=== PATIENT | male | born 1950 | race Caucasian/White ===

== ENCOUNTER 2017-12-22 18:08 | Inpatient (IN) | payer MEDICARE, OTHER ==
--- NOTE | 2017-12-22 18:31 | ED ---
General Adult HPI - General Chief complaint: Recheck/Abnormal Lab/Rx Stated complaint: sepsis Time Seen by Provider: 12/22/17 18:10 Source: patient, EMS, RN notes reviewed, old records reviewed Mode of arrival: EMS Limitations: no limitations - History of Present Illness Initial comments: This is a 67-year-old male the ER for evaluation. Patient presented to transfer patient for colitis, nausea vomiting diarrhea weakness and inability to tolerate oral intake. Patient denies any recent travel history, patient is accepted in transfer from outpatient hospital with elevated lactic acid. Patient himself isn't a STEMI feels mildly improved with still still does feel dizzy and weak - Related Data Home Medications Medication Instructions Recorded Confirmed Aspirin 325 mg PO DAILY 04/22/14 12/22/17 Cilostazol [Pletal] 100 mg PO BID 04/22/14 12/22/17 Metoprolol Tartrate [Lopressor] 100 mg PO BID 04/22/14 12/22/17 rOPINIRole HCL [Requip] 0.25 mg PO TID 04/22/14 12/22/17 traZODone HCL [Desyrel] 200 mg PO HS 04/22/14 12/22/17 ALPRAZolam [Xanax] 1 mg PO BID PRN 05/16/14 12/22/17 Albuterol Nebulized [Ventolin 2.5 mg INHALATION RT-QID PRN 05/16/14 12/22/17 Nebulized] Gabapentin 800 mg PO QID 12/22/17 12/22/17 HYDROcodone/APAP 10-325MG [[place] 1 tab PO Q6HR PRN 12/22/17 12/22/17 10-325] Lisinopril [Zestril] 10 mg PO DAILY 12/22/17 12/22/17 Allergies Allergy/AdvReac Type Severity Reaction Status Date / Time clopidogrel [From Plavix] Allergy Itching Verified 12/22/17 18:26 morphine Allergy Rash/Hives Verified 05/16/14 03:54 fentanyl AdvReac Hallucinati Verified 12/22/17 18:26 ons Review of Systems ROS Statement: Those systems with pertinent positive or pertinent negative responses have been documented in the HPI. ROS Other: All systems not noted in ROS Statement are negative. Past Medical History Past Medical History: Eye Disorder, Hyperlipidemia, Hypertension, Liver Disease , Osteoarthritis (OA) Additional Past Medical History / Comment(s): POOR CIRCULATION IN LEGS" HEPATITIS C , BLIND RIGHT EYE (pt states he has about 25% vision) History of Any Multi-Drug Resistant Organisms: None Reported Past Surgical History: Tonsillectomy Additional Past Surgical History / Comment(s): PTBA X6 WITH STENT IN LEG, RAKA 2008 Past Anesthesia/Blood Transfusion Reactions: No Reported Reaction Past Psychological History: Anxiety Smoking Status: Current every day smoker Past Alcohol Use History: None Reported Past Drug Use History: Marijuana - Past Family History Father Family Medical History: Cancer General Exam Limitations: no limitations General appearance: alert, in no apparent distress Head exam: Present: atraumatic, normocephalic, normal inspection Eye exam: Present: normal appearance, PERRL, EOMI. Absent: scleral icterus, conjunctival injection, periorbital swelling ENT exam: Present: normal exam, mucous membranes moist Neck exam: Present: normal inspection. Absent: tenderness, meningismus, lymphadenopathy Respiratory exam: Present: normal lung sounds bilaterally. Absent: respiratory distress, wheezes, rales, rhonchi, stridor Cardiovascular Exam: Present: regular rate, normal rhythm, normal heart sounds. Absent: systolic murmur, diastolic murmur, rubs, gallop, clicks GI/Abdominal exam: Present: soft, normal bowel sounds. Absent: distended, tenderness, guarding, rebound, rigid Extremities exam: Present: normal inspection, full ROM, normal capillary refill. Absent: tenderness, pedal edema, joint swelling, calf tenderness Back exam: Present: normal inspection Neurological exam: Present: alert, oriented X3, CN II-XII intact Psychiatric exam: Present: normal affect, normal mood Skin exam: Present: warm, dry, intact, normal color. Absent: rash Course Vital Signs 12/22/17 18:14 Temperature 96.9 F L Pulse Rate 85 Respiratory 18 Rate Blood Pressure 108/67 O2 Sat by Pulse 100 Oximetry - Reevaluation(s) Reevaluation #1: 12/22/17 19:09 Transferring paperwork is reviewed Medical Decision Making - Medical Decision Making 67 male the ER for nausea vomiting diarrhea colitis on CT with lactic acidosis and dehydration. We'll admit for IV rehydration and supportive antibiotics Disposition Clinical Impression: Colitis, Dizziness, Nausea & vomiting, Abdominal pain Disposition: ADMITTED IP TO THIS HOSP Condition: Good Is patient prescribed a controlled substance at d/c from ED?: No Referrals: Phani Rosenthal MD [Primary Care Provider] - 1-2 days
[2017-12-22] MEDS ORDERED: SODIUM CHLORIDE 0.9% 1,000 ML IV ONE (19:07)
[2017-12-22] MEDS ORDERED: ONDANSETRON 4 MG/2 ML VIAL IVP PRN (19:07)
[2017-12-22] MEDS ORDERED: AMPICILLIN-SULBACTAM 3 GM in SODIUM CHLORIDE 0.9% 100 ML IVPB STA (19:07)
[2017-12-22] MEDS: ALPRAZolam 0.25 MG TAB PO PRN (21:34)
[2017-12-22] MEDS: HYDROcodone/APAP 10-325MG 1 EACH TAB PO PRN (21:34)
[2017-12-22] MEDS: METOPROLOL TARTRATE 50 MG TAB PO SCH (22:09)
[2017-12-22] MEDS: traZODone HCL 100 MG TAB PO SCH (22:09)
[2017-12-22] MEDS: GABAPENTIN 400 MG CAP PO SCH (22:09)
[2017-12-22] MEDS ORDERED: TEMAZEPAM 15 MG CAP PO PRN (22:16)
[2017-12-22] MEDS ORDERED: ACETAMINOPHEN TAB 500 MG TAB PO PRN (22:16)
[2017-12-22] MEDS ORDERED: ALBUTEROL NEBULIZED 2.5 MG/3 ML INHALATION PRN (22:19)
--- NOTE | 2017-12-22 22:47 | HP ---
HISTORY AND PHYSICAL DATE OF SERVICE: 12/22/2017. CHIEF COMPLAINT: Abdominal pain, GI bleed, nausea. HISTORY OF PRESENT ILLNESS: This 67-year-old gentleman with a past medical history of multiple medical problems including DVT, history hypertension, hyperlipidemia, history of liver disease, history of EtOH, history hepatitis C, history of DJD, history of constipation, history of PTCA, history of bilateral above-knee amputation, being followed by Dr. Rosenthal in the outpatient setting, presented to [facility] with multiple complaints including abdominal pain, nausea, vomiting, some diarrhea, and diminished p.o. intake. Patient also had bloody stools also. A CT scan of the abdomen and pelvis showed L2 chronic compression fracture as well as wall thickening in the colon from the distal transverse, down to and including the rectum, compatible with colitis and proctitis. The patient was subsequently transferred to [facility] Emergency Room and was admitted for further evaluation and treatment. There is no history of fevers, rigors, headaches, loss of consciousness, or seizures. PAST MEDICAL HISTORY: History of DVT, hypertension, history of DJD, history of liver disease. MEDICATIONS: Prior to admission, home medications are: 1. Desyrel 200 mg at bedtime. 3. Lopressor 100 mg p.o. b.i.d. 4. Zestril 10 mg p.o. daily. 5. [place] 10 mg every 6 hours p.r.n. 6. Gabapentin 800 mg p.o. q.i.d. 7. Pletal 100 mg p.o. b.i.d. 8. Aspirin 325 mg daily. 9. Ventolin 2.5 q.i.d. p.r.n. 10.Xanax 1 mg p.o. b.i.d. p.r.n. ALLERGIES: Plavix, morphine, and fentanyl. FAMILY HISTORY: History of cancer in the family. SOCIAL HISTORY: History of smoking on a continued ongoing basis. No history of alcohol intake. REVIEW OF SYSTEMS: ENT: Diminished hearing and vision. CARDIOVASCULAR: No angina. RESPIRATORY: As mentioned earlier. GI: As mentioned earlier. : As mentioned earlier. NERVOUS SYSTEM: As mentioned earlier. ALLERGIES/IMMUNOLOGY: No asthma or hayfever. MUSCULOSKELETAL: As mentioned earlier. ENDOCRINE: No history of diabetes or hypothyroidism. CONSTITUTIONAL: As mentioned earlier. HEMATOLOGY: No history of anemia. DERMATOLOGY: Negative. PSYCHIATRY: As mentioned earlier. PHYSICAL EXAMINATION: Alert oriented x3. The pulse is 78, blood pressure 107/74, respirations 20, temperature 98 degrees, pulse ox 97% on 4 L. HEENT: Conjunctivae normal. Oral mucosa moist. NECK: No jugular venous distention. No lymph node enlargement. CARDIOVASCULAR: S1 and S2 muffled. RESPIRATORY: Breath sounds diminished in the bases. A few scattered rhonchi. No crackles. ABDOMEN: Soft. Mild diffuse tenderness, especially in the left lower quadrant present. Otherwise, no other mass palpable. Bowel sounds present. EXTREMITIES: Legs no edema. No swelling. Bilateral above-knee amputations. NERVOUS SYSTEM: Higher functions as mentioned. Moves all 4 limbs. No focal motor or sensory deficit. LYMPHATICS: No lymph nodes palpable in the neck, axillae or groin. SKIN: As mentioned earlier. JOINTS: No acute deformities or arthropathy. LABS: At this time current labs are not available, however being reviewed. ASSESSMENT: 1. Left-sided colitis and proctitis, possibly with abdominal pain and lower gastrointestinal bleeding. 2. Nausea and diarrhea. 3. Chronic obstructive pulmonary disease. 4. Degenerative joint disease. 5. Hypertension. 6. Hyperlipidemia. 7. Severe peripheral vascular disease and bilateral above-knee amputations. 8. History of hepatitis C. 9. History EtOH and alcoholic liver disease in the past. 10.History of degenerative joint disease. 11.History of continued ongoing nicotine dependence. 12.Anxiety. 13.History of THC. RECOMMENDATIONS AND DISCUSSION: This 64-year-old gentleman who presented with multiple complex medical issues. We will monitor the patient closely, continue the current management and treatment. Otherwise at this time recommend broad-spectrum IV antibiotics and I would also recommend evaluation by Gastroenterology and Surgery. Otherwise the prognosis is extremely guarded because of multiple complex medical issues. Further recommendations to follow. See orders for further details. Medication reconciliation will be done. MMODL / IJN: [id number] / [facility]ALTH[facility]
[2017-12-22] MEDS ORDERED: LEVOFLOXACIN 500MG-D5W PMX 500 MG in DEXTROSE/WATER 1 100ML.BAG IVPB SCH (23:00)
[2017-12-22] MEDS: SODIUM CHLORIDE 0.9% 1,000 ML IV SCH (23:38)
[2017-12-23] MEDS: metroNIDAZOLE-NS PMX 500 MG in SALINE 1 100ML.BAG IVPB SCH ×3 (00:56→15:52)
[2017-12-23 04:14] LABS: Appearance,Urine Cloudy (Clear); Bilirubin,Urine Negative (Negative); Blood,Urine Moderate (Negative); Color,Urine Yellow; Glucose,Urine (UA) Negative (Negative); Hyaline Casts,Urine 3 /lpf (0-2); Ketones,Urine Negative (Negative); Leukocyte Esterase,Urine Negative (Negative); Mucus,Urine Rare /hpf; Nitrite,Urine Negative (Negative); Protein,Urine 2+ (Negative); RBC,Urine 2 /hpf (0-5); Specific Gravity,Urine 1.013 (1.001-1.035); Urobilinogen,Urine <2.0 mg/dL (<2.0); WBC,Urine 3 /hpf (0-5)
[2017-12-23] MEDS: HYDROcodone/APAP 10-325MG 1 EACH TAB PO PRN ×2 (06:19→13:08)
[2017-12-23 08:53] LABS: HCT 44.8 % (39.0-53.0); HGB 14.1 gm/dL (13.0-17.5); MCH 31.6 pg (25.0-35.0); MCHC 31.4 g/dL (31.0-37.0); MCV 100.7 fL (80.0-100.0); Mean Platelet Volume 7.9; Platelet Count 234 k/uL (150-450); RBC 4.45 m/uL (4.30-5.90); RDW 13.3 % (11.5-15.5); WBC 19.1 k/uL (3.8-10.6)
[2017-12-23 08:54] LABS: Calcium 7.6 mg/dL (8.4-10.2); Potassium 4.2 mmol/L (3.5-5.1)
[2017-12-23] MEDS ORDERED: LISINOPRIL 10 MG TAB PO SCH (09:00)
[2017-12-23] MEDS ORDERED: ENOXAPARIN 40 MG/0.4 ML SYRINGE SQ SCH (09:00)
[2017-12-23] MEDS: NICOTINE 14MG/24HR PATCH TRANSDERM SCH (09:14)
[2017-12-23] MEDS: PANTOPRAZOLE 40 MG/10 ML VIAL IVP SCH (09:15)
[2017-12-23] MEDS: GABAPENTIN 400 MG CAP PO SCH (09:15)
[2017-12-23] MEDS: HEPARIN SODIUM,PORCINE 5,000 UNIT/ML 1 ML VIAL SQ SCH ×2 (09:15→22:00)
[2017-12-23] MEDS: SODIUM CHLORIDE 0.9% 1,000 ML IV SCH (09:16)
[2017-12-23 09:57] VITALS: BMI 16.1
--- NOTE | 2017-12-23 09:59 | P.NPCON ---
History of Present Illness - Reason for Consult acute renal failure - History of Present Illness Reason for consultation: Acute kidney injury History of present illness: Patient is a 67-year-old male seen in renal consultation for acute kidney injury. Creatinine in 2015 was 0.74. It is elevated at 6.75 today. Patient presented to [facility] with generalized weakness along with abdominal discomfort. Patient denies any nausea vomiting but states his oral intake has been quite poor the last few days. Patient also admits to taking 2 Aleve on a daily basis for general pain. Additionally he was also on lisinopril. He is currently receiving normal saline at 75 mL an hour. He is also noted to have high postvoid residuals and is scheduled to get a Rawls catheter placed. He did have a computed tomography scan done prior to admission which revealed colitis. He is currently maintained on IV antibiotics. Hemodynamically stable. Blood pressure 109/70 this morning. Afebrile. He hasn't had any diarrhea or vomiting since transfer here. He denies any prior history of kidney disease. He denies any family history of kidney disease. Vital signs are stable. General: The patient appeared well nourished and normally developed. HEENT: Head exam is unremarkable. Neck is without jugular venous distension. LUNGS: Lungs are clear to auscultation and percussion. Breath sounds decreased. HEART: Rate and Rhythm are regular. First and second heart sounds normal. No murmurs, rubs or gallops. ABDOMEN: Abdominal exam reveals normal bowel sounds. Non-tender and non- distended. No evidence of peritonitis. EXTREMITITES: Bilateral AKA. Past Medical History Past Medical History: COPD, Deep Vein Thrombosis (DVT), Eye Disorder, Hyperlipidemia, Hypertension, Liver Disease, Osteoarthritis (OA) Additional Past Medical History / Comment(s): Poor leg circulation resulting in amputation of bilateral legs, hepatitic C, right eye - blind, UTI, dehydration, fall from bed, clostridium difficile, pink eye, PVD, polyarthralgia, DDD lumbar spine, chronic back pain, rhabdomyolysis, appendicitis, hydronephrosis, right buttock abscess, post-surgical infection (unknown), 2nd/3rd degree ruth to legs , arterial occlusion of lower limb, skin cancer to face (treated at [facility]). * Pt. poor historian - histories obtained from [facility] paperwork*. History of Any Multi-Drug Resistant Organisms: None Reported Past Surgical History: Tonsillectomy Additional Past Surgical History / Comment(s): PTCA X6 w/ stent in leg, left and right AKA, facial surgery r/t cancer. Past Anesthesia/Blood Transfusion Reactions: No Reported Reaction Past Psychological History: Anxiety Smoking Status: Current every day smoker Past Alcohol Use History: None Reported Past Drug Use History: Marijuana Additional Drug Use History / Comment(s): 2 joints per week. - Past Family History Father Family Medical History: Cancer Medications and Allergies Home Medications Medication Instructions Recorded Confirmed Type Aspirin 325 mg PO DAILY 04/22/14 12/22/17 History Cilostazol [Pletal] 100 mg PO BID 04/22/14 12/22/17 History Metoprolol Tartrate [Lopressor] 100 mg PO BID 04/22/14 12/22/17 History rOPINIRole HCL [Requip] 0.25 mg PO TID 04/22/14 12/22/17 History traZODone HCL [Desyrel] 200 mg PO HS 04/22/14 12/22/17 History ALPRAZolam [Xanax] 1 mg PO BID PRN 05/16/14 12/22/17 History Albuterol Nebulized [Ventolin 2.5 mg INHALATION RT-QID PRN 05/16/14 12/22/17 History Nebulized] Gabapentin 800 mg PO QID 12/22/17 12/22/17 History HYDROcodone/APAP 10-325MG [[place] 1 tab PO Q6HR PRN 12/22/17 12/22/17 History 10-325] Lisinopril [Zestril] 10 mg PO DAILY 12/22/17 12/22/17 History Allergies Allergy/AdvReac Type Severity Reaction Status Date / Time clopidogrel [From Plavix] Allergy Itching Verified 12/22/17 18:26 morphine Allergy Rash/Hives Verified 05/16/14 03:54 fentanyl AdvReac Hallucinati Verified 12/22/17 18:26 ons Physical Exam Vitals: Vital Signs Temp Pulse Pulse Resp BP BP Pulse Ox 12/23/17 05:59 97.7 F 84 20 109/70 99 12/22/17 21:30 95 12/22/17 20:53 98 F 78 20 107/75 97 12/22/17 20:00 97.1 F L 85 16 108/63 100 12/22/17 19:20 97.5 F L 84 16 115/80 98 12/22/17 18:14 96.9 F L 85 18 108/67 100 Intake and Output 12/22/17 12/23/17 12/23/17 22:59 06:59 14:59 Intake Total 400 Output Total 400 Balance 0 Intake: Oral 400 Output: Urine 400 Other: Voiding Method Urinal # Voids 0 1 # Bowel Movements 0 Weight 44 kg Results - Lab Results Most recent lab results Calcium 7.6 mg/dL (8.4-10.2) L 12/23/17 07:54 12/23/17 07:54 12/23/17 07:54 Assessment and Plan Plan: Assessment: 1. Nonoliguric acute kidney injury mostly prerenal secondary to nonsteroidals and poor oral intake. He was also on lisinopril. Also component of urinary retention. Creatinine 6.75 on admission. Creatinine 0.74 and 2015. No other records available. 2. Urinary retention. He should to get Rawls catheter inserted today. 3. Metabolic acidosis secondary to acute kidney injury. 4. Benign hypertension. Currently controlled. 5. Peripheral arterial disease status post bilateral [id number] habitation' s. Plan: Discontinue normal saline. Start D5W with 3 times of bicarbonate to be run at 200 mL an hour. I will decrease the dose of gabapentin 200 mg 3 times daily. Discontinue lisinopril. Rawls catheter to be inserted. Encourage oral intake. Repeat electrolytes in the morning. Thank you for the consultation. I will continue to follow the patient with you during his hospital stay.
[2017-12-23] MEDS: METOPROLOL TARTRATE 50 MG TAB PO SCH ×2 (10:25→22:01)
--- NOTE | 2017-12-23 10:28 | XR ---
EXAMINATION TYPE: XR chest 1V portable DATE OF EXAM: 12/23/2017 HISTORY: Shortness of breath. COMPARISON: May 16, 2014 TECHNIQUE: Single view of the chest is submitted. FINDINGS: Demonstrated are scattered senescent parenchymal change. There is no evidence for focal infiltrate. The heart is stable. Hilar and mediastinal structures are within normal limits. Degenerative changes are seen of the dorsal spine. IMPRESSION: 1. Chronic changes without evidence for acute pulmonary disease.
--- NOTE | 2017-12-23 10:32 | P.CONS ---
History of Present Illness - Reason for Consult Consult date: 12/23/17 colitis Requesting physician: Zoya Ray - Chief Complaint abdominal pain - History of Present Illness 67-year-old male patient of Dr. Rosenthal with a history of DVT, EtOH abuse, alcohol liver disease, hepatitis C, bilateral AKA, hypertension, and PVD. Patient transferred from [facility] with complaints of abdominal pain nausea vomiting elevated BUN/creatinine. Loose nonbloody stools. CT imaging reported transverse descending rectal inflammation compatible with colitis and proctitis. No active alcohol. Patient is taking NSAIDs/Aleve daily for generalized arthritic pain. D Unsure if patient has a history of colitis. No history of colonoscopy. Patient is not forthcoming with his medical history he reports sometimes his stools have been bloody but not lately. White count 19.1. Hemoglobin 14.1. MCV 100.7. Platelet 234. BUN 93. Creatinine 6.7. Receiving IV antibiotics. Transaminases not available for review. Review of Systems Constitutional: Denies fever, chills, sweats, weight gain, or loss. HEENT: Negative for migraines, blurred vision or loss, earaches, drainage, tinnitus, oral mucosal lesions, dysphagia, or odynophagia. Cardiac: Negative for chest pain, arrhythmias, or palpitation. Respiratory: Negative for shortness of breath, hemoptysis, cough, or sputum production. Gastrointestinal: See HPI for pertinent findings. Genitourinary: Negative for hematuria, urgency, frequency, polyuria, dysuria, or penile discharge. Musculoskeletal: History of PVD bilateral [id number] amputations. Chronic arthritis. Neurologic: Negative for stroke or TIA. Endocrine: Negative for thyroid problems. Skin: Negative for rash or itching. Psychiatric: Negative history for depression and anxiety Past Medical History Past Medical History: COPD, Deep Vein Thrombosis (DVT), Eye Disorder, Hyperlipidemia, Hypertension, Liver Disease, Osteoarthritis (OA) Additional Past Medical History / Comment(s): Poor leg circulation resulting in amputation of bilateral legs, hepatitic C, right eye - blind, UTI, dehydration, fall from bed, clostridium difficile, pink eye, PVD, polyarthralgia, DDD lumbar spine, chronic back pain, rhabdomyolysis, appendicitis, hydronephrosis, right buttock abscess, post-surgical infection (unknown), 2nd/3rd degree ruth to legs , arterial occlusion of lower limb, skin cancer to face (treated at of ). * Pt. poor historian - histories obtained from [facility] paperwork*. History of Any Multi-Drug Resistant Organisms: None Reported Past Surgical History: Tonsillectomy Additional Past Surgical History / Comment(s): PTCA X6 w/ stent in leg, left and right AKA, facial surgery r/t cancer. Past Anesthesia/Blood Transfusion Reactions: No Reported Reaction Past Psychological History: Anxiety Smoking Status: Current every day smoker Past Alcohol Use History: None Reported Past Drug Use History: Marijuana Additional Drug Use History / Comment(s): 2 joints per week. - Past Family History Father Family Medical History: Cancer Medications and Allergies Home Medications Medication Instructions Recorded Confirmed Type Aspirin 325 mg PO DAILY 04/22/14 12/22/17 History Cilostazol [Pletal] 100 mg PO BID 04/22/14 12/22/17 History Metoprolol Tartrate [Lopressor] 100 mg PO BID 04/22/14 12/22/17 History rOPINIRole HCL [Requip] 0.25 mg PO TID 04/22/14 12/22/17 History traZODone HCL [Desyrel] 200 mg PO HS 04/22/14 12/22/17 History ALPRAZolam [Xanax] 1 mg PO BID PRN 05/16/14 12/22/17 History Albuterol Nebulized [Ventolin 2.5 mg INHALATION RT-QID PRN 05/16/14 12/22/17 History Nebulized] Gabapentin 800 mg PO QID 12/22/17 12/22/17 History HYDROcodone/APAP 10-325MG [[place] 1 tab PO Q6HR PRN 12/22/17 12/22/17 History 10-325] Lisinopril [Zestril] 10 mg PO DAILY 12/22/17 12/22/17 History Allergies Allergy/AdvReac Type Severity Reaction Status Date / Time clopidogrel [From Plavix] Allergy Itching Verified 12/22/17 18:26 morphine Allergy Rash/Hives Verified 05/16/14 03:54 fentanyl AdvReac Hallucinati Verified 12/22/17 18:26 ons Physical Exam Vitals: Vital Signs Temp Pulse Pulse Resp BP BP Pulse Ox 12/23/17 05:59 97.7 F 84 20 109/70 99 12/22/17 21:30 95 09/27/18 20:53 98 F 78 20 107/75 97 12/22/17 20:00 97.1 F L 85 16 108/63 100 12/22/17 19:20 97.5 F L 84 16 115/80 98 12/22/17 18:14 96.9 F L 85 18 108/67 100 Intake and Output 12/22/17 12/23/17 12/23/17 22:59 06:59 14:59 Intake Total 400 Output Total 400 Balance 0 Intake: Oral 400 Output: Urine 400 Other: Voiding Method Urinal # Voids 0 1 # Bowel Movements 0 Weight 44 kg 44 kg General appearance: The patient is alert, oriented, in no acute distress. HET: Head is normocephalic and atraumatic. Pupils are equal and reactive. Oropharynx is clear without lesions. Neck: Supple without lymphadenopathy. Trachea midline. Heart: S1 S2. Regular rate and rhythm. Lungs: No crackles or wheezes are heard. Abdomen: Soft, mild left-sided tenderness left mid quadrant/left lower quadrant , nondistended with bowel sounds. No peritoneal signs. No palpable organomegaly or masses. Extremities: Bilateral AKA. Normal skin color and turgor. No cyanosis, rash, ulceration, clubbing, or edema. Radial pulses are 2/4 bilaterally. Neurological: No focal deficits. Strength and sensation are grossly intact. Results CBC & Chem 7: 12/23/17 07:54 12/23/17 07:54 Labs: Abnormal Lab Results - Last 24 Hours (Table) 12/23/17 12/23/17 12/23/17 Range/Units 03:40 07:54 07:54 WBC 19.1 H (3.8-10.6) k/uL MCV 100.7 H (80.0-100.0) fL Sodium 135 L (137-145) mmol/L Carbon Dioxide 12 L (22-30) mmol/L BUN 93 H (9-20) mg/dL Creatinine 6.75 H (0.66-1.25) mg/dL Glucose 100 H (74-99) mg/dL Calcium 7.6 L (8.4-10.2) mg/dL Urine Protein 2+ H (Negative) Urine Blood Moderate H (Negative) Hyaline Casts 3 H (0-2) /lpf Urine Mucus Rare H (None) /hpf CT scan - abdomen: report reviewed ([place] report reviewed) Assessment and Plan (1) Abdominal pain Narrative/Plan: 67-year-old male transferred from [facility] with acute abdominal pain nausea vomiting possible diarrhea. CT imaging reporting colitis transverse colon extending down to rectum compatible with possible self limiting infectious possible inflammatory colitis proctitis. Current Visit: Yes Status: Acute Code(s): R10.9 - UNSPECIFIED ABDOMINAL PAIN SNOMED Code(s): 76939988 (2) Colitis Current Visit: Yes Status: Acute Code(s): K52.9 - NONINFECTIVE GASTROENTERITIS AND COLITIS, UNSPECIFIED SNOMED Code(s): 96770495 (3) Hepatitis C Narrative/Plan: History of reported hepatitis C. Current Visit: Yes Status: Acute Code(s): B19.20 - UNSPECIFIED VIRAL HEPATITIS C WITHOUT HEPATIC COMA SNOMED Code(s): 64102713 (4) H/O ETOH abuse Current Visit: Yes Status: Acute Code(s): Z87.898 - PERSONAL HISTORY OF OTHER SPECIFIED CONDITIONS SNOMED Code(s): 406153425 Plan: 1. Clear liquid diet. Continue with IV antibiotics Levaquin and Flagyl. Will obtain hepatitis panel additional hepatitis C serology for evaluation of hepatitis C history. Stool studies if diarrhea persists. We'll follow closely with you. Inpatient colonoscopy contingent on clinical course however patient is agreeable with outpatient endoscopic exams. CBC PT/INR CMP in a.m. Thank you for this kind referral and the opportunity to participate in the care of your patient. This consultation was discussed with Dr. Evangelista. The impression and plan of care have been directed as dictated.
[2017-12-23] MEDS: DEXTROSE 5% IN WATER 1,000 ML with SODIUM BICARB (1 MEQ/ML) 150 ML IV SCH ×2 (11:13→22:46)
[2017-12-23 11:25] LABS: Band Neutrophils % 1 %; Lymphocytes # (M) 0.57 k/uL (1.0-4.8); Monocytes # (M) 0.76 k/uL (0-1.0); Neutrophils % (M) 92 %; Nucleated Red Blood Cells 0 /100 WBC (0-0); Total Cells Counted 100
--- NOTE | 2017-12-23 13:50 | P.GSCN ---
History of Present Illness Consult date: 12/23/17 Reason for Consult: Abdominal pain History of present illness: 67-year-old male being seen at the request of the attending for a surgical eval for episode of persistent nausea vomiting poor oral intake with abdominal pain. Patient is a poor historian difficult to get health history from patient reviewing the emergency room record patient had been seen at [facility] for generalized weakness with abdominal discomfort. Patient was transferred to [facility]. Patient did have a CAT scan done prior to admission showed colitis. Patient states that he normally has a bowel movement every day has not had a bowel movement in 3 days. states sometimes he noted blood in the toilet bowl if he has frequent loose stools patient states he has never had a colonoscopy also noted the patient had high postvoid residuals indwelling Rawls catheter has been placed. creatinine is elevated to 6.7 2015 he was 0.74 nephrology following for acute kidney injury At the time of my exam patient currently is resting in bed and states he has no abdominal pain when questioning. Nursing reports the patient has not had a bowel movement since admission reporting no nausea no vomiting Did note review the labs white count is 19.1 creatinine 6.7 BUN 93 Patient does have a past history of DVT, alcohol abuse, alcoholic liver disease , bilateral [id number] amputation, hypertension, peripheral vascular disease , hepatitis C. Patient states he does not currently drink alcohol. Blind in the right eye. Skin cancer to the face treated at [facility] Past surgical history tonsillectomy, stents to the leg. Left and right above- the-knee habitation. Facial surgery. Review of Systems Not able to adequately obtain poor recall Past Medical History Past Medical History: COPD, Deep Vein Thrombosis (DVT), Eye Disorder, Hyperlipidemia, Hypertension, Liver Disease, Osteoarthritis (OA) Additional Past Medical History / Comment(s): Poor leg circulation resulting in amputation of bilateral legs, hepatitic C, right eye - blind, UTI, dehydration, fall from bed, clostridium difficile, pink eye, PVD, polyarthralgia, DDD lumbar spine, chronic back pain, rhabdomyolysis, appendicitis, hydronephrosis, right buttock abscess, post-surgical infection (unknown), 2nd/3rd degree ruth to legs , arterial occlusion of lower limb, skin cancer to face (treated at [facility]). * Pt. poor historian - histories obtained from [facility] paperwork*. History of Any Multi-Drug Resistant Organisms: None Reported Past Surgical History: Tonsillectomy Additional Past Surgical History / Comment(s): PTCA X6 w/ stent in leg, left and right AKA, facial surgery r/t cancer. Past Anesthesia/Blood Transfusion Reactions: No Reported Reaction Past Psychological History: Anxiety Smoking Status: Current every day smoker Past Alcohol Use History: None Reported Past Drug Use History: Marijuana Additional Drug Use History / Comment(s): 2 joints per week. - Past Family History Father Family Medical History: Cancer Medications and Allergies Home Medications Medication Instructions Recorded Confirmed Type Aspirin 325 mg PO DAILY 04/22/14 12/22/17 History Cilostazol [Pletal] 100 mg PO BID 04/22/14 12/22/17 History Metoprolol Tartrate [Lopressor] 100 mg PO BID 04/22/14 12/22/17 History rOPINIRole HCL [Requip] 0.25 mg PO TID 04/22/14 12/22/17 History traZODone HCL [Desyrel] 200 mg PO HS 04/22/14 12/22/17 History ALPRAZolam [Xanax] 1 mg PO BID PRN 05/16/14 12/22/17 History Albuterol Nebulized [Ventolin 2.5 mg INHALATION RT-QID PRN 05/16/14 12/22/17 History Nebulized] Gabapentin 800 mg PO QID 12/22/17 12/22/17 History HYDROcodone/APAP 10-325MG [[place] 1 tab PO Q6HR PRN 12/22/17 12/22/17 History 10-325] Lisinopril [Zestril] 10 mg PO DAILY 12/22/17 12/22/17 History Allergies Allergy/AdvReac Type Severity Reaction Status Date / Time clopidogrel [From Plavix] Allergy Itching Verified 12/22/17 18:26 morphine Allergy Rash/Hives Verified 05/16/14 03:54 fentanyl AdvReac Hallucinati Verified 12/22/17 18:26 ons Surgical - Exam Vital Signs Temp Pulse Resp BP Pulse Ox 96.9 F L 85 18 108/67 100 12/22/17 18:14 12/22/17 18:14 12/22/17 18:14 12/22/17 18:14 12/22/17 18:14 GENERAL APPEARANCE: 67 year old male patient is alert, oriented, in no acute distress. VITAL SIGNS: Reviewed HEENT: Head is normocephalic and atraumatic. Pupils are equal and reactive. The nares are patent. Oropharynx is clear without lesions. Blind in the right eye surgical scars to the nose noted NECK: Supple without lymphadenopathy. Traches midline. HEART: S1, S2. Regular rate and rhythm. No murmur noted LUNGS: No crackles or wheezes are heard. On room air no shortness of breath ABDOMEN: Soft, mild tenderness to the left side mid quadrant nondistended with good bowel sounds. No peritoneal signs. No palpable organomegaly or masses. Indwelling Rawls catheter placed no stool reports no nausea no vomiting EXTREMITIES: Bilateral above-knee amputation. No edema noted to the upper extremities no skin rash palpable radial pulses noted NEUROLOGICAL: No focal deficits. Strength and sensation are grossly intact. Results - Labs 12/23/17 07:54 12/23/17 07:54 Abnormal Lab Results - Last 24 Hours (Table) 12/23/17 12/23/17 12/23/17 Range/Units 03:40 07:54 07:54 WBC 19.1 H (3.8-10.6) k/uL MCV 100.7 H (80.0-100.0) fL Neutrophils # (Manual) 17.70 H (1.3-7.7) k/uL Lymphocytes # (Manual) 0.57 L (1.0-4.8) k/uL Sodium 135 L (137-145) mmol/L Carbon Dioxide 12 L (22-30) mmol/L BUN 93 H (9-20) mg/dL Creatinine 6.75 H (0.66-1.25) mg/dL Glucose 100 H (74-99) mg/dL Calcium 7.6 L (8.4-10.2) mg/dL Urine Protein 2+ H (Negative) Urine Blood Moderate H (Negative) Hyaline Casts 3 H (0-2) /lpf Urine Mucus Rare H (None) /hpf Microbiology - Last 24 Hours (Table) 12/23/17 03:40 Urine Culture - Preliminary Urine,Voided Diabetes panel 12/23/17 Range/Units 07:54 Sodium 135 L (137-145) mmol/L Potassium 4.2 (3.5-5.1) mmol/L Chloride 105 (98-107) mmol/L Carbon Dioxide 12 L (22-30) mmol/L BUN 93 H (9-20) mg/dL Creatinine 6.75 H (0.66-1.25) mg/dL Glucose 100 H (74-99) mg/dL Calcium 7.6 L (8.4-10.2) mg/dL Calcium panel 12/23/17 Range/Units 07:54 Calcium 7.6 L (8.4-10.2) mg/dL Pituitary panel 12/23/17 Range/Units 07:54 Sodium 135 L (137-145) mmol/L Potassium 4.2 (3.5-5.1) mmol/L Chloride 105 (98-107) mmol/L Carbon Dioxide 12 L (22-30) mmol/L BUN 93 H (9-20) mg/dL Creatinine 6.75 H (0.66-1.25) mg/dL Glucose 100 H (74-99) mg/dL Calcium 7.6 L (8.4-10.2) mg/dL Adrenal panel 12/23/17 Range/Units 07:54 Sodium 135 L (137-145) mmol/L Potassium 4.2 (3.5-5.1) mmol/L Chloride 105 (98-107) mmol/L Carbon Dioxide 12 L (22-30) mmol/L BUN 93 H (9-20) mg/dL Creatinine 6.75 H (0.66-1.25) mg/dL Glucose 100 H (74-99) mg/dL Calcium 7.6 L (8.4-10.2) mg/dL Assessment and Plan Assessment: Impression CT imaging done at [facility] report reviewed transverse descending rectal inflammation compatible with colitis and proctitis Remote history of alcohol abuse History of hepatitis C Current every day smoker Present on admission nausea vomiting abdominal pain suspect due to inflammatory colitis proctitis Acute renal failure History of skin cancer treated at [facility] Bilateral [id number] amputation due to peripheral artery disease Urinary retention and indwelling Rawls catheter placed Nonoliguric acute kidney injury mostly prerenal secondary to nonsteroidals and poor oral intake Plan No evidence of an acute surgical abdomen at this time Continue recommendations by nephrology Continue recommendations by GI service Agree with indwelling Rawls catheter to be placed due to urinary retention IV fluids per nephrology Lisinopril discontinued per nephrology Encourage oral intake Will follow with you with further surgical recommendations per clinical course IV Levaquin and Flagyl as ordered Stool studies if indicated Inpatient colonoscopy depending clinical course could be done in the outpatient setting Surgical consultation dictated for The above impression and plan of care have been discussed and directed by signing physician. Ramonita Tabor nurse practitioner acting as scribe for signing physician.
--- NOTE | 2017-12-23 14:20 | CT ---
EXAMINATION TYPE: CT brain wo con DATE OF EXAM: 12/23/2017 COMPARISON: None HISTORY: Lethargy, fatigue. CT DLP: 1012.[address] of the brain was performed. The ventricles, basal cisterns and sulci overlying the cerebral convexities demonstrate moderate enla rgement. There is no evidence for intracranial hemorrhage or sulcal effacement. There is decreased attenuation about the periventricular white matter and deep white matter of both c erebral hemispheres, compatible with chronic small vessel ischemia. Differential diagnosis does inclu de demyelination. No mass effects are seen.No midline shift. Osseous calvarium is intact. If symptoms persist consider MRI. IMPRESSION: 1. Age related atrophic and chronic small vessel ischemic change without acute intracranial process s een at this time.
--- NOTE | 2017-12-23 15:37 | US ---
EXAMINATION TYPE: US kidneys/renal and bladder DATE OF EXAM: 12/23/2017 COMPARISON: NONE CLINICAL HISTORY: retention, acute kidney failure . EXAM MEASUREMENTS: Right Kidney: 10.4 x 5.1 x 4.8 cm Left Kidney: 11.5 x 5.7 x 4.7 cm Technically difficult, patient unable to move for examiner. Right Kidney: cyst noted measuring 3.3 x 2.9 x 2.0cm Left Kidney: No hydronephrosis or masses seen Bladder: not visualized, patient has cabezas, extensive midline bowel gas There is no evidence for hydronephrosis at this point in time. No nephrolithiasis is seen. No solid masses are identified. IMPRESSION: Simple cyst right kidney.
[2017-12-23] MEDS: GABAPENTIN 100 MG CAP PO SCH ×2 (15:53→22:02)
--- NOTE | 2017-12-23 16:39 | PN ---
PROGRESS NOTE DATE OF SERVICE: 12/23/2017. INTERIM HISTORY: This 67-year-old gentleman who was admitted with left-sided colitis and proctitis also had abdominal pain, GI bleed also. The patient also had renal failure. The patient is mildly confused today. Multiple consultants are following the patient closely. A CT scan of the brain was done which showed age-related atrophic acute changes and no acute process. Abdominal ultrasound was done to evaluate the renal system. Results are pending at this time. Surgery is following the patient. PAST MEDICAL HISTORY: Reviewed. REVIEW OF SYSTEMS: Could not be taken. The patient is confused. CURRENT MEDICATIONS: Reviewed and include: 1. Tylenol 500 mg q.h.s. 2. [place] 10 mg q.6h p.r.n. 3. Ventolin. 4. Xanax 0.5 b.i.d. p.r.n. 5. Neurontin 100 mg p.o. t.i.d. 6. Heparin. 7. Levaquin. 8. Flagyl 500 mg IV q.8h. 9. Habitrol. 10.Zofran. 11.Protonix. 12.Requip. 13.Restoril. 14.Desyrel. EXAM: Patient is alert, oriented x1. Pulse 73, blood pressure 94/55, respiration 16, temperature 98.7, pulse ox 98% on room air. HEENT: Conjunctivae normal. Oral mucosa moist. Neck is no jugular venous distention. No carotid bruit. No lymph node enlargement. CARDIOVASCULAR: S1, S2 RESPIRATORY: Breath sounds diminished in the bases. A few scattered rhonchi and crackles. ABDOMEN: Soft, nontender. LEGS: No edema. Bilateral below-knee amputations. NERVOUS SYSTEM: Diffusely weak. LAB STUDIES: WBC 19.1, sodium 135, creatinine 6.75. ASSESSMENT: 1. Metastatic colitis and proctitis with possible severe abdominal pain, lower gastrointestinal bleeding. 2. Acute renal failure possibly prerenal of undetermined etiology. 3. Nausea, vomiting and diarrhea. 4. Change in mental status, metabolic encephalopathy, acute, multifactorial. 5. Chronic obstructive pulmonary disease. 6. Degenerative joint disease. 7. Hypertension. 8. Bilateral below-knee amputations. 9. Hyperlipidemia. 10.History of peripheral vascular disease and bilateral below-knee amputations. 11.History hepatitis C. 12.History of ETOH and alcoholic liver disease in the past. 13.History of degenerative joint disease. 14.History of continued ongoing nicotine dependence. 15.History of anxiety. 16.History of THC. RECOMMENDATIONS AND DISCUSSION: I recommend to continue current management and symptomatic treatment. Otherwise at this time I recommend continue with IV fluids cautiously. Monitor creatinine closely. Nephrology seeing the patient. Hold sedatives. CT scan has been noted. DVT prophylaxis. Empiric antibiotics. Overall prognosis extremely guarded because of multiple complex medical issues. Further recommendations to follow. MMODL / IJN: [id number] /
[2017-12-23] MEDS: LEVOFLOXACIN 250MG-D5W PMX 250 MG in DEXTROSE/WATER 1 50ML.BAG IVPB SCH (22:00)
[2017-12-23] MEDS: traZODone HCL 100 MG TAB PO SCH (22:01)
[2017-12-24] MEDS: metroNIDAZOLE-NS PMX 500 MG in SALINE 1 100ML.BAG IVPB SCH ×3 (00:21→15:04)
[2017-12-24] MEDS: HYDROcodone/APAP 10-325MG 1 EACH TAB PO PRN ×3 (07:01→22:43)
[2017-12-24] MEDS: PANTOPRAZOLE 40 MG/10 ML VIAL IVP SCH (07:42)
[2017-12-24] MEDS: METOPROLOL TARTRATE 50 MG TAB PO SCH ×2 (07:43→21:54)
[2017-12-24] MEDS: HEPARIN SODIUM,PORCINE 5,000 UNIT/ML 1 ML VIAL SQ SCH ×2 (07:43→21:52)
[2017-12-24] MEDS: GABAPENTIN 100 MG CAP PO SCH ×3 (07:43→21:54)
[2017-12-24 07:59] LABS: Basophils % (A) 0 %; Eosinophils % (A) 0 %; HCT 38.9 % (39.0-53.0); HGB 12.5 gm/dL (13.0-17.5); Lymphocytes # (A) 0.9 k/uL (1.0-4.8); Lymphocytes % (A) 9 %; MCH 31.9 pg (25.0-35.0); MCHC 32.2 g/dL (31.0-37.0); MCV 99.2 fL (80.0-100.0); Mean Platelet Volume 7.6; Monocytes % (A) 11 %; Neutrophils # (A) 7.6 k/uL (1.3-7.7); Neutrophils % (A) 77 %; Platelet Count 199 k/uL (150-450); RBC 3.92 m/uL (4.30-5.90); RDW 13.3 % (11.5-15.5); WBC 9.9 k/uL (3.8-10.6)
[2017-12-24 08:10] LABS: Albumin 2.5 g/dL (3.5-5.0); Calcium 7.3 mg/dL (8.4-10.2); Magnesium 1.9 mg/dL (1.6-2.3); Potassium 3.5 mmol/L (3.5-5.1); Total Bilirubin 0.5 mg/dL (0.2-1.3); Total Protein 4.9 g/dL (6.3-8.2)
[2017-12-24 08:18] LABS: INR 1.1 (<1.2)
[2017-12-24] MEDS: DEXTROSE 5% IN WATER 1,000 ML with SODIUM BICARB (1 MEQ/ML) 150 ML IV SCH (09:31)
[2017-12-24] MEDS: NICOTINE 14MG/24HR PATCH TRANSDERM SCH (09:31)
--- NOTE | 2017-12-24 10:12 | P.PN ---
Subjective Progress Note Date: 12/24/17 Principal diagnosis: Colitis Patient doing well today. Denies pain. He is quite hungry. No diarrhea. Objective - Vital Signs Vital signs: Vital Signs Temp 98.8 F 12/24/17 06:01 Pulse 83 12/24/17 06:01 Resp 16 12/24/17 06:01 BP 113/66 12/24/17 06:01 Pulse Ox 95 12/24/17 06:01 Intake & Output 12/23/17 12/24/17 12/24/17 18:59 06:59 18:59 Intake Total 360 Output Total 450 750 Balance -450 -750 360 Weight 44 kg Intake: Oral 360 Output: Urine 450 750 Other: Voiding Method Indwelling Catheter Indwelling Catheter Indwelling Catheter - Exam Abdomen: Soft, nontender, nondistended - Labs CBC & Chem 7: 12/24/17 06:57 12/24/17 06:57 Labs: Abnormal Lab Results - Last 24 Hours (Table) 12/23/17 12/24/17 12/24/17 Range/Units 07:54 06:57 06:57 RBC 3.92 L (4.30-5.90) m/uL Hgb 12.5 L (13.0-17.5) gm/dL Hct 38.9 L (39.0-53.0) % Neutrophils # (Manual) 17.70 H (1.3-7.7) k/uL Lymphocytes # 0.9 L (1.0-4.8) k/uL Lymphocytes # (Manual) 0.57 L (1.0-4.8) k/uL Sodium 133 L (137-145) mmol/L Chloride 96 L (98-107) mmol/L BUN 88 H (9-20) mg/dL Creatinine 6.00 H (0.66-1.25) mg/dL Calcium 7.3 L (8.4-10.2) mg/dL Total Protein 4.9 L (6.3-8.2) g/dL Albumin 2.5 L (3.5-5.0) g/dL Microbiology - Last 24 Hours (Table) 12/23/17 17:00 Stool Culture - Preliminary Stool 12/22/17 22:36 Blood Culture - Preliminary Blood No Growth after 24 hours 12/23/17 03:40 Urine Culture - Preliminary Urine,Voided Assessment and Plan Plan: Increase diet. Will follow.
--- NOTE | 2017-12-24 14:01 | P.PN ---
Subjective Progress Note Date: 12/24/17 Principal diagnosis: This is a 67-year-old male seen in consultation because of acute kidney injury secondary to nonsteroidals. Additionally he has a Rawls catheter inserted because of urinary retention. His creatinine has come down slightly from, urine output is recorded 500 mL for the last 24 hours. Patient complains of lower abdominal discomfort and cramps. He said he has 2 loose stools this morning. No fever chills good appetite. Patient is a remote bilateral amputee, has had a history of peripheral vascular disease history of hydronephrosis hypertension liver disease Denies any nausea vomiting. No fever chills cough shortness of breath. History of present illness Patient presented to [facility] with generalized weakness along with abdominal discomfort. Patient denies any nausea vomiting but states his oral intake has been quite poor the last few days. Patient also admits to taking 2 Aleve on a daily basis for general pain. Additionally he was also on lisinopril. He is currently receiving normal saline at 75 mL an hour. He is also noted to have high postvoid residuals and is scheduled to get a Rawls catheter placed. He did have a computed tomography scan done prior to admission which revealed colitis. He is currently maintained on IV antibiotics. Hemodynamically stable. Blood pressure 109/70 this morning. Afebrile. He hasn't had any diarrhea or vomiting since transfer here. He denies any prior history of kidney disease. He denies any family histo Objective - Vital Signs Vital signs: Vital Signs Temp 98.8 F 12/24/17 06:01 Pulse 83 12/24/17 06:01 Resp 16 12/24/17 06:01 BP 113/66 12/24/17 06:01 Pulse Ox 95 12/24/17 06:01 Intake & Output 12/23/17 12/24/17 12/24/17 18:59 06:59 18:59 Intake Total 360 Output Total 450 750 Balance -450 -750 360 Weight 44 kg Intake: Oral 360 Output: Urine 450 750 Other: Voiding Method Indwelling Catheter Indwelling Catheter Indwelling Catheter Examination is a bilateral amputee. HEENT exam no JVP, neck is supple no facial asymmetry Lungs are clear to auscultation fair air entry bilaterally Heart sounds are unremarkable for any murmur rub gallop Abdomen soft nontender. no Mass. ascites masses felt. Extremities examination reveals bilateral bunion amputee. - Labs CBC & Chem 7: 12/24/17 06:57 12/24/17 06:57 Labs: Abnormal Lab Results - Last 24 Hours (Table) 12/24/17 12/24/17 Range/Units 06:57 06:57 RBC 3.92 L (4.30-5.90) m/uL Hgb 12.5 L (13.0-17.5) gm/dL Hct 38.9 L (39.0-53.0) % Lymphocytes # 0.9 L (1.0-4.8) k/uL Sodium 133 L (137-145) mmol/L Chloride 96 L (98-107) mmol/L BUN 88 H (9-20) mg/dL Creatinine 6.00 H (0.66-1.25) mg/dL Calcium 7.3 L (8.4-10.2) mg/dL Total Protein 4.9 L (6.3-8.2) g/dL Albumin 2.5 L (3.5-5.0) g/dL Microbiology - Last 24 Hours (Table) 12/23/17 03:40 Urine Culture - Final Urine,Voided 12/23/17 17:00 Stool Culture - Preliminary Stool 12/22/17 22:36 Blood Culture - Preliminary Blood No Growth after 24 hours Assessment and Plan Assessment: Impression 1. Acute kidney injury secondary to combination of urinary retention and nonsteroidals. Improving with urine output increasing and creatinine improved. 2. Mild hyponatremia secondary to acute kidney injury, sodium went down from 135-133, currently on D5W with 3 A of sodium bicarb. 3. Non-gap and gap acidosis with bicarb of 12 now has resolved with bicarb is known to 25 and an gap is 12. 4. Remote bilateral ammonia amputation. Recommendation. 1. Maintain current medications but discontinued this IV bicarbonate drip. Patient can be given IV Ringer lactate at 75 mL an hour. Will watch his labs. 2. He has 2+ proteinuria will watch this and repeat this and if necessary get a urine protein to creatinine ratio.
[2017-12-24] MEDS: LACTATED RINGERS 1,000 ML IV SCH (14:17)
[2017-12-24 19:04] LABS: Alpha Fetoprotein, Tumor Mkr <2.5 ng/mL (0.0-7.9)
[2017-12-24 19:26] LABS: Hepatitis A Antibody IgM Non-Reactive (Non-Reactive); Hepatitis B Core IgM Non-Reactive (Non-Reactive)
--- NOTE | 2017-12-24 20:07 | PN ---
PROGRESS NOTE DATE OF SERVICE: 12/24/2017. INTERVAL HISTORY: This 67-year-old gentleman admitted with left-sided colitis also had renal failure. The patient also had change in mental status acute and metabolic encephalopathy also. Surgery and nephrology are following the patient closely. The combination of urinary retention and ascites have been thought to be causing renal failure also. Abdominal and bladder ultrasound has been done, which showed no evidence of hydronephrosis , only simple cyst of the right kidney. PAST MEDICAL HISTORY: Reviewed. REVIEW OF SYSTEMS: Could not be taken, the patient is confused. CURRENT MEDICATIONS: Reviewed, include: 1. Tylenol p.r.n. 2. [place] 10 mg every 6 hours p.r.n. 3. Ventolin. 4. Xanax 0.5 b.i.d. p.r.n. 5. Neurontin 100 mg p.o. 6. Heparin subcu b.i.d. 7. Lactated Ringer. 8. Levaquin. 9. Lopressor. 10.Flagyl. 11.Levaquin. 12.Zofran 4 mg every 6 hours. 13.Protonix 40 daily. 15.Desyrel 100 mg at bedtime. PHYSICAL EXAMINATION: The patient is alert, oriented x1. Pulse 76, blood pressure 95/60, respirations 20, temperature 99.1, pulse ox 93% on room air. HEENT: Conjunctivae normal. Oral mucosa moist. NECK: No jugular venous distention. No lymph node enlargement. CARDIOVASCULAR: S1 and S2 muffled. LUNGS: Few rhonchi. ABDOMEN: Soft. Mild diffuse distention. Mild diffuse discomfort. No guarding. No rigidity. EXTREMITIES: Legs, no edema. NERVOUS SYSTEM: No focal deficits. LABS: WBC 9.4, hemoglobin 12.5, sodium 133, creatinine 6, albumin is 2.5. C difficile is negative. ASSESSMENT: 1. Acute colitis with severe abdominal pain with lower gastrointestinal bleeding. 2. Acute renal failure possibly prerenal and also secondary to urinary obstruction and NSAIDs. 3. Nausea, vomiting, and diarrhea. 4. Change in mental status, metabolic encephalopathy, acute multifactorial. 5. Chronic obstructive pulmonary disease. 6. Degenerative joint disease. 7. Hypertension. 8. Bilateral below-knee amputations. 9. Hyperlipidemia. 10.History of peripheral vascular disease with bilateral above-knee amputations. 11.History hepatitis C. 12.History EtOH and alcoholic liver disease in the past. 13.History of degenerative joint disease. 14.History of benign ongoing nicotine dependence. 15.History of anxiety. 16.History of THC. RECOMMENDATIONS: Continue current management and treatment. At this time, I recommend monitor creatinine closely. Otherwise, continue the empiric antibiotics. Hold nephrotoxic medications. Follow closely with Gastroenterology. Guarded prognosis because of multiple complex medical conditions. See orders for further details. MMODL / IJN: [id number] / WARNER
[2017-12-24] MEDS: traZODone HCL 100 MG TAB PO SCH (21:54)
[2017-12-25] MEDS: metroNIDAZOLE-NS PMX 500 MG in SALINE 1 100ML.BAG IVPB SCH ×4 (00:15→23:32)
[2017-12-25] MEDS: HYDROcodone/APAP 10-325MG 1 EACH TAB PO PRN ×3 (00:25→15:08)
[2017-12-25] MEDS: LACTATED RINGERS 1,000 ML IV SCH ×2 (03:54→16:41)
[2017-12-25] MEDS: NICOTINE 14MG/24HR PATCH TRANSDERM SCH (07:36)
[2017-12-25] MEDS: HEPARIN SODIUM,PORCINE 5,000 UNIT/ML 1 ML VIAL SQ SCH ×2 (07:37→20:26)
[2017-12-25] MEDS: GABAPENTIN 100 MG CAP PO SCH ×3 (07:37→20:26)
[2017-12-25] MEDS: PANTOPRAZOLE 40 MG/10 ML VIAL IVP SCH (07:37)
[2017-12-25] MEDS: METOPROLOL TARTRATE 50 MG TAB PO SCH ×2 (07:37→20:27)
[2017-12-25 08:18] LABS: HCT 38.3 % (39.0-53.0); HGB 12.5 gm/dL (13.0-17.5); MCH 32.2 pg (25.0-35.0); MCHC 32.7 g/dL (31.0-37.0); MCV 98.5 fL (80.0-100.0); Mean Platelet Volume 8.2; Platelet Count 205 k/uL (150-450); RBC 3.89 m/uL (4.30-5.90); WBC 8.1 k/uL (3.8-10.6)
[2017-12-25 08:19] LABS: Calcium 7.5 mg/dL (8.4-10.2); Potassium 3.5 mmol/L (3.5-5.1)
[2017-12-25] MEDS ORDERED: LOPERAMIDE 2 MG CAP PO PRN (09:55)
[2017-12-25 10:33] LABS: Eosinophils # (M) 0.16 k/uL (0-0.7); Lymphocytes # (M) 0.97 k/uL (1.0-4.8); Monocytes # (M) 0.41 k/uL (0-1.0); Neutrophils # (M) 6.56 k/uL (1.3-7.7); Neutrophils % (M) 81 %; Nucleated Red Blood Cells 0 /100 WBC (0-0); Total Cells Counted 100
--- NOTE | 2017-12-25 10:35 | P.PN ---
Subjective Progress Note Date: 12/25/17 Principal diagnosis: Colitis Patient without new complaints. He is having some loose stools. C. diff is negative. Stool cultures are negative thus far. White blood cell count is normal. Tolerating diet. Objective - Vital Signs Vital signs: Vital Signs Temp 98.0 F 12/25/17 05:59 Pulse 72 12/25/17 05:59 Resp 18 12/25/17 05:59 BP 107/59 12/25/17 05:59 Pulse Ox 96 12/25/17 05:59 Intake & Output 12/24/17 12/25/17 12/25/17 18:59 06:59 18:59 Intake Total 1060 Output Total 1700 Balance 1060 -1700 Intake: Oral 1060 Output: Urine 1700 Other: Voiding Method Indwelling Catheter Indwelling Catheter Indwelling Catheter # Bowel Movements 1 - Exam Abdomen: Soft, nontender, nondistended - Labs CBC & Chem 7: 12/25/17 07:29 12/25/17 07:29 Labs: Abnormal Lab Results - Last 24 Hours (Table) 12/24/17 12/25/17 12/25/17 Range/Units 06:57 07:29 07:29 RBC 3.89 L (4.30-5.90) m/uL Hgb 12.5 L (13.0-17.5) gm/dL Hct 38.3 L (39.0-53.0) % Lymphocytes # (Manual) 0.97 L (1.0-4.8) k/uL BUN 71 H (9-20) mg/dL Creatinine 4.95 H (0.66-1.25) mg/dL Calcium 7.5 L (8.4-10.2) mg/dL Hep C IgG Ab Reactive H (Non-Reactive) Microbiology - Last 24 Hours (Table) 12/22/17 22:36 Blood Culture - Preliminary Blood No Growth after 48 hours 12/23/17 03:40 Urine Culture - Final Urine,Voided Assessment and Plan (1) Colitis Narrative/Plan: Continue diet as tolerated. We'll add Imodium when necessary. Current Visit: Yes Status: Acute Code(s): K52.9 - NONINFECTIVE GASTROENTERITIS AND COLITIS, UNSPECIFIED SNOMED Code(s): 80066950
--- NOTE | 2017-12-25 14:49 | P.PN ---
Subjective Progress Note Date: 12/25/17 Principal diagnosis: This is a 67-year-old male seen in consultation because of acute kidney injury secondary to nonsteroidals. Additionally he has a Rawls catheter inserted because of urinary retention. His creatinine has been improving. He has no complaints this morning. No fever chills no diarrhea appetite is fair. No nausea vomiting. Patient is a remote bilateral amputee, has had a history of peripheral vascular disease, hypertension and liver disease Denies any nausea vomiting. No fever chills cough shortness of breath. History of present illness Patient presented to [facility] with generalized weakness along with abdominal discomfort. Patient denies any nausea vomiting but states his oral intake has been quite poor the last few days. Patient also admits to taking 2 Aleve on a daily basis for general pain. Additionally he was also on lisinopril. He is currently receiving normal saline at 75 mL an hour. He is also noted to have high postvoid residuals and is scheduled to get a Rawls catheter placed. He did have a computed tomography scan done prior to admission which revealed colitis. He is currently maintained on IV antibiotics. Hemodynamically stable. Blood pressure 109/70 this morning. Afebrile. He hasn't had any diarrhea or vomiting since transfer here. He denies any prior history of kidney disease. He denies any family histo Objective - Vital Signs Vital signs: Vital Signs Temp 98.0 F 12/25/17 05:59 Pulse 72 12/25/17 05:59 Resp 18 12/25/17 05:59 BP 107/59 12/25/17 05:59 Pulse Ox 96 12/25/17 05:59 Intake & Output 12/24/17 12/25/17 12/25/17 18:59 06:59 18:59 Intake Total 1060 Output Total 1700 Balance 1060 -1700 Intake: Oral 1060 Output: Urine 1700 Other: Voiding Method Indwelling Catheter Indwelling Catheter Indwelling Catheter # Bowel Movements 1 Examination is awake alert oriented comfortable HEENT exam no JVP neck is supple no facial asymmetry Lungs are clear to auscultation good air entry bilaterally Heart sounds are unremarkable no murmur rub gallop Abdomen soft nontender no masses felt Extremity examination bilateral amputee [id number]. Neurologically awake alert oriented - Labs CBC & Chem 7: 12/25/17 07:29 12/25/17 07:29 Labs: Abnormal Lab Results - Last 24 Hours (Table) 12/24/17 12/25/17 12/25/17 Range/Units 06:57 07:29 07:29 RBC 3.89 L (4.30-5.90) m/uL Hgb 12.5 L (13.0-17.5) gm/dL Hct 38.3 L (39.0-53.0) % Lymphocytes # (Manual) 0.97 L (1.0-4.8) k/uL BUN 71 H (9-20) mg/dL Creatinine 4.95 H (0.66-1.25) mg/dL Calcium 7.5 L (8.4-10.2) mg/dL Hep C IgG Ab Reactive H (Non-Reactive) Microbiology - Last 24 Hours (Table) 12/22/17 22:36 Blood Culture - Preliminary Blood No Growth after 48 hours 12/23/17 03:40 Urine Culture - Final Urine,Voided Assessment and Plan Assessment: Impression 1. Acute kidney injury secondary to combination of urinary retention and nonsteroidals. Improving with urine output increasing and creatinine improved. 2. Mild hyponatremia secondary to acute kidney injury, sodium went down from 135-133 . 140 , 3. Non-gap and gap acidosis with bicarb of 12 now has resolved 4. Remote bilateral ammonia amputation. Recommendation. 1. Maintain IV Ringer lactate at 75 mL an hour. Will watch his labs. 2. He has 2+ proteinuria will watch this and repeat this and if necessary get a urine protein to creatinine ratio.
--- NOTE | 2017-12-25 18:56 | PN ---
PROGRESS NOTE DATE OF SERVICE: 12/25/2017. INTERVAL HISTORY: This 67-year-old gentleman who was admitted with left-sided colitis also had renal failure. The patient's renal failure thought to be multifactorial. The patient has severe abdominal pain from colitis also. The creatinine is still elevated at 4.95. showing a diminishing trend. The patient is also mildly confused also. Multiple consultants following the patient closely with Nephrology. PAST MEDICAL HISTORY: Reviewed. REVIEW OF SYSTEMS: Cardiovascular: No angina. RESPIRATORY: As mentioned earlier. GI: As mentioned earlier. as mentioned earlier. Nervous system: Diffusely weak. CURRENT MEDICATIONS ARE: 1. Tylenol 500 mg q6h. 2. [place] 10 mg q.6h p.r.n. 3. Ventolin. 4. Xanax 0.5 b.i.d. p.r.n. 5. Neurontin 100 mg. 6. Heparin 500 subcu b.i.d. 7. Lactated Ringer's. 8. Levaquin 250 mg daily q.48 hours. 9. Imodium p.r.n. 10.Lopressor 100 mg p.o. daily. 11.Flagyl 500 mg q8. 12.Habitrol. 13.Zofran 4 mg q.h.s. 14.Protonix 40 mg. 15.Requip 0.25 mg t.i.d. 16.Desyrel 100 mg p.o. q.h.s. PHYSICAL EXAM: Patient is alert, oriented x2. Pulse is 83, blood pressure 120/74, respirations 16, temperature 98.6, pulse ox 94% on 2 L. HEENT: Conjunctivae normal. Oral mucosa moist. Neck is no jugular venous distention. No carotid bruit. No lymph node enlargement. Cardiovascular system: S1, S2 muffled. Respiratory: Breath sounds diminished in the bases. Bilateral scattered rhonchi and crackles. ABDOMEN: Soft, obese. Mild diffuse discomfort. No mass palpable. Legs: Bilateral below-knee amputation. Nervous system: Diffusely weak. LABS: WBC 8.1, hemoglobin 12.5, creatinine is 4.95. ASSESSMENT: 1. Acute colitis, severe abdominal pain with lower gastrointestinal bleeding, present on admission. 2. Acute renal failure possibly prerenal and also secondary to urinary obstruction and end stage. 3. Nausea, vomiting and diarrhea. 4. Change in mental status, acute metabolic encephalopathy, multifactorial. 5. Chronic obstructive pulmonary disease. 6. Degenerative joint disease. 7. Hypertension. 8. Bilateral above-knee amputations. 9. Hyperlipidemia. 10.History of peripheral vascular disease. 11.History of hepatitis C. 12.History of ETOH and alcoholic liver disease in the past. 13.History of degenerative joint disease. 14.History of ongoing nicotine dependence. 15.History of anxiety. 16.History of THC. RECOMMENDATIONS AND DISCUSSION: Recommend to continue current medications, management. Symptomatic treatment. Monitor creatinine closely. Continue with cautious IV fluids and continue to monitor. Continue the rest of the medications. Empiric antibiotics. I would also recommend multivitamin supplements. PT/OT evaluation and also Foam Rubber Fabricator to evaluate the home situation as well. The prognosis guarded because of multiple complex medical issues. Further recommendations to follow. As mentioned earlier, multiple consultants are following the patient closely and further recommendations to follow. MMODL / ERASTON: [id number] / WARNER
[2017-12-25] MEDS: LEVOFLOXACIN 250MG-D5W PMX 250 MG in DEXTROSE/WATER 1 50ML.BAG IVPB SCH (20:26)
[2017-12-25] MEDS: traZODone HCL 100 MG TAB PO SCH (20:27)
[2017-12-25] MEDS: ALPRAZolam 0.25 MG TAB PO PRN (20:29)
[2017-12-26] MEDS: LACTATED RINGERS 1,000 ML IV SCH ×2 (05:35→17:58)
[2017-12-26] MEDS: HYDROcodone/APAP 10-325MG 1 EACH TAB PO PRN (06:50)
[2017-12-26] MEDS: HEPARIN SODIUM,PORCINE 5,000 UNIT/ML 1 ML VIAL SQ SCH ×2 (08:00→20:55)
[2017-12-26] MEDS: metroNIDAZOLE-NS PMX 500 MG in SALINE 1 100ML.BAG IVPB SCH (08:00)
[2017-12-26] MEDS: PANTOPRAZOLE 40 MG TABLET PO SCH (08:00)
[2017-12-26] MEDS: NICOTINE 14MG/24HR PATCH TRANSDERM SCH (08:01)
[2017-12-26] MEDS: METOPROLOL TARTRATE 50 MG TAB PO SCH ×2 (08:01→20:55)
[2017-12-26] MEDS: GABAPENTIN 100 MG CAP PO SCH ×3 (08:01→20:56)
[2017-12-26 09:22] LABS: Basophils % (A) 0 %; Eosinophils # (A) 0.1 k/uL (0-0.7); Eosinophils % (A) 1 %; HCT 38.8 % (39.0-53.0); HGB 12.4 gm/dL (13.0-17.5); Lymphocytes # (A) 0.8 k/uL (1.0-4.8); Lymphocytes % (A) 9 %; MCH 31.8 pg (25.0-35.0); MCHC 31.9 g/dL (31.0-37.0); MCV 99.8 fL (80.0-100.0); Mean Platelet Volume 7.9; Monocytes # (A) 0.9 k/uL (0-1.0); Monocytes % (A) 10 %; Neutrophils # (A) 6.7 k/uL (1.3-7.7); Neutrophils % (A) 77 %; Platelet Count 235 k/uL (150-450); RBC 3.89 m/uL (4.30-5.90); RDW 13.1 % (11.5-15.5); WBC 8.8 k/uL (3.8-10.6)
[2017-12-26 09:44] LABS: Calcium 7.9 mg/dL (8.4-10.2); Potassium 3.7 mmol/L (3.5-5.1)
[2017-12-26] MEDS: FOLIC ACID 1 MG TAB PO SCH (11:48)
[2017-12-26] MEDS: THIAMINE 100 MG TAB PO SCH (11:48)
[2017-12-26] MEDS: MULTIVITAMINS, THERA 1 EACH TAB PO SCH (11:48)
[2017-12-26] MEDS: metroNIDAZOLE 500 MG TAB PO SCH ×2 (16:40→20:55)
--- NOTE | 2017-12-26 17:17 | PN ---
PROGRESS NOTE DATE OF SERVICE: 12/26/2017. INTERVAL HISTORY: This 67-year-old gentleman was admitted with left-sided possible colitis, also had acute on chronic renal failure. Creatinine elevated up to 6, today it has come down to 3.25. Patient was confused yesterday. The sensorium has improved significantly. No chest pain. No palpitations. No fever. PAST MEDICAL HISTORY: Reviewed. REVIEW OF SYSTEMS: CARDIOVASCULAR: No angina. RESPIRATORY: As mentioned earlier. GI: No nausea or vomiting. : No dysuria or hematuria. EXTREMITIES: No edema. No swelling. CURRENT MEDICATIONS: Current medications are reviewed include: 1. Tylenol 500 mg p.r.n. 2. [place] 10 mg daily p.r.n. 3. Ventolin p.r.n. 4. Xanax 0.5 t.i.d. 5. Folic acid 1 mg daily. 6. Neurontin 100 mg p.o. b.i.d. 7. Aspirin. 8. Levaquin. 9. Imodium. 10.Lopressor. 11.Multivitamins and thiamine. 12.Protonix. 13.Desyrel. PHYSICAL EXAM: Patient is alert, oriented x2. Pulse is 71, blood pressure 142/70, respirations 18, temperature 99.2, pulse ox 94% on 2 L. HEENT: Conjunctivae normal. Oral mucosa moist. NECK: No jugular venous distention. No lymph node enlargement. CARDIOVASCULAR: S1 and S2 muffled. LUNGS: Breath sounds diminished at the bases. Few rhonchi. No crackles. ABDOMEN: Soft, obese, nontender. EXTREMITIES: Legs bilateral above-knee amputation. NERVOUS SYSTEMS: Diffusely weak. LAB STUDIES: WBC 8.8, hemoglobin 12.4, creatinine 3.25, and hepatitis C positive. ASSESSMENT: 1. Acute colitis, severe abdominal pain with lower GI bleeding, present on admission. 2. Acute renal failure, possibly related prerenal and secondary to urinary obstruction and NSAIDs. 3. Nausea, vomiting, diarrhea; improving. 4. Change in mental status, acute metabolic encephalopathy, multifactorial. 5. Chronic obstructive pulmonary disease. 6. Degenerative joint disease. 7. Hypertension. 8. Bilateral above-knee amputations. 9. Hyperlipidemia. 10.History of peripheral vascular disease. 11.History of hepatitis C. 12.History of EtOH and alcoholic liver disease in the past. 13.History of degenerative joint disease. 14.Continued ongoing nicotine dependence. 15.History of anxiety. 16.History of THC. RECOMMENDATIONS: Recommend to continue current medications, monitoring and symptomatic treatment. At this time I recommend continue with monitoring creatinine. The trazodone and Xanax doses may be increased according to the home doses, but I would follow the sensorium closely. Patient is on lactated Ringer at 75 mL/hour. Prognosis guarded because of multiple complex medical issues. Continue with empiric antibiotics. MMODL / IJN: [id number] /
--- NOTE | 2017-12-26 18:49 | PN ---
PROGRESS NOTE HISTORY: The patient is seen for followup for acute kidney injury. His renal function has been improving with serum creatinine down from 6.75 to 3.2 mg/dL. The patient denies any significant complaints at this time. PHYSICAL EXAM: On examination blood pressure was 116/80, heart rate 74 per minute. He is afebrile. Examination of the heart S1, S2. Examination of lungs, bilateral breath sounds are heard. Abdomen is soft, nontender. Examination of lower extremities shows bilateral above knee amputations. COMBINATION MACHINE TOOL OPERATOR exam is grossly intact. LABS: Sodium 142, potassium 3.7, BUN 46, serum creatinine 3.2, hemoglobin 12.4 g/dL. ASSESSMENT: 1. Acute kidney injury secondary to NSAIDs and urine retention. Currently continuing to improve. 2. Non-anion gap metabolic acidosis, currently resolved. 3. Bilateral above knee amputations. 4. Rule out chronic kidney disease. Previous creatinine was 0.74 in April, however, patient has proteinuria which will need further evaluation. PLAN: Continue to encourage increased oral intake. Continue IV fluids. Repeat labs in a.m. MMODL / IJN: [id number] /
[2017-12-26] MEDS ORDERED: ALPRAZolam 1 MG TAB PO SCH (21:00)
[2017-12-26] MEDS ORDERED: traZODone HCL 100 MG TAB PO SCH (21:00)
--- NOTE | 2017-12-26 21:28 | P.PN ---
Subjective Progress Note Date: 12/26/17 Principal diagnosis: Abdominal pain, nausea, vomiting Lying in bed with no complaints. No abdominal pain at this time. No bowel movements today. Reports that bowel movements are still somewhat loose. No GI bleeding reported. Objective - Vital Signs Vital signs: Vital Signs Temp 99.3 F 12/26/17 15:00 Pulse 71 12/26/17 15:00 Resp 18 12/26/17 15:00 BP 142/77 12/26/17 15:00 Pulse Ox 91 L 12/26/17 15:00 Intake & Output 12/26/17 12/26/17 12/27/17 06:59 18:59 06:59 Intake Total 960 Output Total 3000 1050 Balance -3000 -90 Weight 44 kg Intake: Oral 960 Output: Urine 3000 1050 Other: Voiding Method Indwelling Catheter Indwelling Catheter # Bowel Movements 1 0 - Exam On physical examination, patient appears comfortable in no apparent distress. HEAD: Normocephalic, scarring on face and nose from prior surgery. EYES: No scleral icterus. No conjunctival injection. MOUTH: No lesions, tongue midline. NECK: Trachea midline, no gross abnormalities. CHEST: Clear to auscultation with no wheezing or rhonchi appreciated. HEART: Regular rate and rhythm. ABDOMEN: Soft, obese. Bowel sounds are positive. No organomegaly. No guarding or rigidity. EXTREMITIES: Bilateral lower extremity amputation. NEUROLOGIC: Alert and oriented x3. - Labs CBC & Chem 7: 12/26/17 08:15 12/26/17 08:15 Labs: Abnormal Lab Results - Last 24 Hours (Table) 12/26/17 12/26/17 Range/Units 08:15 08:15 RBC 3.89 L (4.30-5.90) m/uL Hgb 12.4 L (13.0-17.5) gm/dL Hct 38.8 L (39.0-53.0) % Lymphocytes # 0.8 L (1.0-4.8) k/uL BUN 46 H (9-20) mg/dL Creatinine 3.25 H (0.66-1.25) mg/dL Glucose 137 H (74-99) mg/dL Calcium 7.9 L (8.4-10.2) mg/dL Microbiology - Last 24 Hours (Table) 12/23/17 17:00 Stool Culture - Final Stool Karol albicans 12/22/17 22:36 Blood Culture - Preliminary Blood No Growth after 72 hours Assessment and Plan (1) Colitis Narrative/Plan: Colitis seen on imaging from the transverse colon to the rectum, this may represent a infectious in etiology given nausea vomiting and diarrhea, and ischemic process or other etiology. Currently symptoms have improved. Stool studies negative. Current Visit: Yes Status: Acute Code(s): K52.9 - NONINFECTIVE GASTROENTERITIS AND COLITIS, UNSPECIFIED SNOMED Code(s): 51107200 (2) Hepatitis C Narrative/Plan: Known history of treatment mark hepatitis C. Current Visit: Yes Status: Acute Code(s): B19.20 - UNSPECIFIED VIRAL HEPATITIS C WITHOUT HEPATIC COMA SNOMED Code(s): 21851000 Plan: Supportive care Okay for diet Imodium as needed Stool studies negative to date Continue antibiotics for 10-14 days total Patient will need colonoscopy in the outpatient setting in 4-6 weeks for evaluation of colitis seen on imaging Thank you for allowing us to dissipate in the care of this patient, we will continue to follow
[2017-12-27 06:11] VITALS: TEMP 99.1
[2017-12-27] MEDS: HEPARIN SODIUM,PORCINE 5,000 UNIT/ML 1 ML VIAL SQ SCH (08:04)
[2017-12-27] MEDS: GABAPENTIN 100 MG CAP PO SCH ×2 (08:05→12:30)
[2017-12-27] MEDS: NICOTINE 14MG/24HR PATCH TRANSDERM SCH (08:05)
[2017-12-27] MEDS: metroNIDAZOLE 500 MG TAB PO SCH ×2 (08:05→16:36)
[2017-12-27] MEDS: PANTOPRAZOLE 40 MG TABLET PO SCH (08:05)
[2017-12-27] MEDS: METOPROLOL TARTRATE 50 MG TAB PO SCH (08:05)
[2017-12-27] MEDS: LACTATED RINGERS 1,000 ML IV SCH (08:06)
[2017-12-27] MEDS: ALPRAZolam 0.25 MG TAB PO PRN (08:09)
[2017-12-27] MEDS: HYDROcodone/APAP 10-325MG 1 EACH TAB PO PRN (08:09)
[2017-12-27 09:24] LABS: Basophils % (A) 0 %; Eosinophils # (A) 0.1 k/uL (0-0.7); Eosinophils % (A) 1 %; HCT 41.7 % (39.0-53.0); HGB 12.7 gm/dL (13.0-17.5); Hypochromasia Slight; Lymphocytes % (A) 12 %; MCH 31.1 pg (25.0-35.0); MCHC 30.5 g/dL (31.0-37.0); MCV 101.9 fL (80.0-100.0); Macrocytosis Slight; Mean Platelet Volume 7.8; Monocytes # (A) 0.9 k/uL (0-1.0); Monocytes % (A) 11 %; Neutrophils # (A) 6.1 k/uL (1.3-7.7); Neutrophils % (A) 73 %; Platelet Count 250 k/uL (150-450); RBC 4.09 m/uL (4.30-5.90); RDW 13.2 % (11.5-15.5); WBC 8.4 k/uL (3.8-10.6)
[2017-12-27 09:37] LABS: Calcium 7.9 mg/dL (8.4-10.2); Potassium 3.5 mmol/L (3.5-5.1)
[2017-12-27] MEDS: MULTIVITAMINS, THERA 1 EACH TAB PO SCH (11:51)
[2017-12-27] MEDS: FOLIC ACID 1 MG TAB PO SCH (11:51)
[2017-12-27] MEDS: THIAMINE 100 MG TAB PO SCH (11:51)
--- NOTE | 2017-12-27 12:10 | P.PN ---
Subjective Progress Note Date: 12/27/17 Principal diagnosis: Colitis Denies abdominal pain. No diarrhea. Stool culture moderate karol albicans. White count 8.4. Hemoglobin 12.7. Afebrile. Objective - Vital Signs Vital signs: Vital Signs Temp 99.1 F 12/27/17 06:10 Pulse 77 12/27/17 06:10 Resp 16 12/27/17 06:10 BP 160/87 12/27/17 06:10 Pulse Ox 92 L 12/27/17 06:10 Intake & Output 12/26/17 12/27/17 12/27/17 18:59 06:59 18:59 Intake Total 960 580 240 Output Total 1050 1250 Balance -90 -670 240 Weight 44 kg Intake: Oral 960 580 240 Output: Urine 1050 1250 Other: Voiding Method Indwelling Catheter Indwelling Catheter Indwelling Catheter # Bowel Movements 0 - Exam General appearance: The patient is alert, oriented, in no acute distress. HET: Head is normocephalic and atraumatic. Pupils are equal and reactive. Oropharynx is clear without lesions. Neck: Supple without lymphadenopathy. Trachea midline. Heart: S1 S2. Regular rate and rhythm. Lungs: No crackles or wheezes are heard. Abdomen: Soft, nontender, nondistended with bowel sounds. No peritoneal signs. No palpable organomegaly or masses. - Labs CBC & Chem 7: 12/27/17 08:40 12/27/17 08:40 Labs: Abnormal Lab Results - Last 24 Hours (Table) 12/27/17 12/27/17 Range/Units 08:40 08:40 RBC 4.09 L (4.30-5.90) m/uL Hgb 12.7 L (13.0-17.5) gm/dL MCV 101.9 H (80.0-100.0) fL MCHC 30.5 L (31.0-37.0) g/dL BUN 29 H (9-20) mg/dL Creatinine 2.06 H (0.66-1.25) mg/dL Glucose 137 H (74-99) mg/dL Calcium 7.9 L (8.4-10.2) mg/dL Microbiology - Last 24 Hours (Table) 12/22/17 22:36 Blood Culture - Preliminary Blood No Growth after 96 hours 12/23/17 17:00 Stool Culture - Final Stool Karol albicans Assessment and Plan (1) Abdominal pain Narrative/Plan: 67-year-old male transferred from [facility] with acute abdominal pain nausea vomiting possible diarrhea. CT imaging reporting colitis transverse colon extending down to rectum compatible with possible self limiting infectious possible inflammatory colitis proctitis. Stool culture reporting moderate karol albicans felt not to be the cause of his colitis. Current Visit: Yes Status: Acute Code(s): R10.9 - UNSPECIFIED ABDOMINAL PAIN SNOMED Code(s): 13919942 (2) Colitis Current Visit: Yes Status: Acute Code(s): K52.9 - NONINFECTIVE GASTROENTERITIS AND COLITIS, UNSPECIFIED SNOMED Code(s): 24917237 (3) Hepatitis C Narrative/Plan: History of reported hepatitis C. Current Visit: Yes Status: Acute Code(s): B19.20 - UNSPECIFIED VIRAL HEPATITIS C WITHOUT HEPATIC COMA SNOMED Code(s): 22937821 (4) H/O ETOH abuse Current Visit: Yes Status: Acute Code(s): Z87.898 - PERSONAL HISTORY OF OTHER SPECIFIED CONDITIONS SNOMED Code(s): 848257291 Plan: 1. Continue symptomatic supportive measures. Discharge per medicine. Recommend outpatient endoscopy however patient refuses endoscopy. Stool culture reviewed do not feel it is contributing to his colitis presentation however if there is an ongoing clinical concern recommend infectious disease consultation. Sessile and plan a care discussed with Dr. Evangelista
[2017-12-27] MEDS ORDERED: diphenhydrAMINE 25 MG CAP PO PRN (12:23)
--- NOTE | 2017-12-27 12:41 | P.PN ---
Subjective Progress Note Date: 12/27/17 67-year-old seen and examined at the bedside states is anxious to be discharged home he reports no abdominal pain no loose stools "I'm not to have colonoscopy don't want one Stool culture moderate karol albicans. White count 8.4. Hemoglobin 12.7. Afebrile. Objective - Vital Signs Vital signs: Vital Signs Temp 99.1 F 12/27/17 06:10 Pulse 77 12/27/17 06:10 Resp 16 12/27/17 06:10 BP 160/87 12/27/17 06:10 Pulse Ox 92 L 12/27/17 06:10 Intake & Output 12/26/17 12/27/17 12/27/17 18:59 06:59 18:59 Intake Total 960 580 240 Output Total 1050 1250 Balance -90 -670 240 Weight 44 kg Intake: Oral 960 580 240 Output: Urine 1050 1250 Other: Voiding Method Indwelling Catheter Indwelling Catheter Indwelling Catheter # Bowel Movements 0 - Exam Physical exam 67 year old male resting in bed appears in no acute distress Lungs adequate air movement bilaterally on room air Heart S1-S2 audible regular Abdomen soft nondistended nontender states no bowel movement reports no nausea vomiting Extremities bilateral AKA - Labs CBC & Chem 7: 12/27/17 08:40 12/27/17 08:40 Labs: Abnormal Lab Results - Last 24 Hours (Table) 12/27/17 12/27/17 Range/Units 08:40 08:40 RBC 4.09 L (4.30-5.90) m/uL Hgb 12.7 L (13.0-17.5) gm/dL MCV 101.9 H (80.0-100.0) fL MCHC 30.5 L (31.0-37.0) g/dL BUN 29 H (9-20) mg/dL Creatinine 2.06 H (0.66-1.25) mg/dL Glucose 137 H (74-99) mg/dL Calcium 7.9 L (8.4-10.2) mg/dL Microbiology - Last 24 Hours (Table) 12/22/17 22:36 Blood Culture - Preliminary Blood No Growth after 96 hours 12/23/17 17:00 Stool Culture - Final Stool Karol albicans Assessment and Plan Assessment: Impression CT imaging done at [facility] report reviewed transverse descending rectal inflammation compatible with colitis and proctitis Remote history of alcohol abuse History of hepatitis C Current every day smoker Present on admission nausea vomiting abdominal pain suspect due to inflammatory colitis proctitis Acute renal failure History of skin cancer treated at [facility] Bilateral [id number] amputation due to peripheral artery disease Urinary retention indwelling Rawls catheter placed Nonoliguric acute kidney injury mostly prerenal secondary to nonsteroidals and poor oral intake improved resolving Plan No evidence of an acute surgical abdomen at this time Continue recommendations by nephrology Continue recommendations by GI service Agree with indwelling Rawls catheter to be placed due to urinary retention IV fluids per nephrology Lisinopril discontinued per nephrology Encourage oral intake From a surgical perspective okay for discharge Levaquin and Flagyl as ordered Stool studies if indicated colonoscopy to be done in the outpatient setting Will sign off and re-eval as needed The above impression and plan of care have been discussed and directed by signing physician. Ramonita Tabor nurse practitioner acting as scribe for signing physician.
--- NOTE | 2017-12-27 14:53 | P.DS ---
Providers Date of admission: 12/22/17 19:07 Attending physician: Zoya Ray Consults: 12/22/17 22:18 Consult Physician Routine Consulting Provider: Raul Markham Consult Reason/Comments: colitis Do you want consulting provider notified?: Yes 12/23/17 09:06 Consult Physician Urgent Consulting Provider: Getachew Dodd Consult Reason/Comments: ARF, elevated labs Do you want consulting provider notified?: Yes Primary care physician: Phani Rosenthal Hospital Course: 67-year-old the gentleman admitted for colitis infectious colitis and the patient will be discharged on ciprofloxacin and metronidazole. Patient's diarrhea resolved. Patient has acute renal failure with creatinine going up to 6 now down to 2 multifactorial acute renal failure from my prerenal azotemia from diarrhea, nonsteroidal anti-inflammatory use, lisinopril, lisinopril is being discontinued. Cutting down the dose of gabapentin because of his poor renal function and patient will be discharged today in stable medical condition to home. PHYSICAL EXAMINATION: GENERAL: The patient is alert and oriented x3, not in any acute distress. Well developed, well nourished. HEENT: Pupils are round and equally reacting to light. EOMI. No scleral icterus. No conjunctival pallor. Normocephalic, atraumatic. No pharyngeal erythema. No thyromegaly. CARDIOVASCULAR: S1 and S2 present. No murmurs, rubs, or gallops. PULMONARY: Chest is clear to auscultation, no wheezing or crackles. ABDOMEN: Soft, nontender, nondistended, normoactive bowel sounds. No palpable organomegaly. MUSCULOSKELETAL: No joint swelling or deformity. EXTREMITIES: No cyanosis, clubbing, or pedal edema. Patient does have amputations lower limbs NEUROLOGICAL: Gross neurological examination did not reveal any focal deficits. SKIN: No rashes. -Colitis acute and infectious etiology -Acute renal failure multifactorial prerenal azotemia along with NSAID use and lisinopril use -Acute metabolic encephalopathy secondary to uremia which improved -COPD without any acute examination Heparin for breast disease -Degenerative joint disease -Hyperlipidemia [place]-history of hepatitis C -alcohol abuse in the past -Nicotine abuse: Counseling was provided -Degenerative joint disease Patient Condition at Discharge: Good Plan - Discharge Summary Discharge Rx Participant: No New Discharge Prescriptions: New Ciprofloxacin HCl [Cipro] 250 mg PO Q12HR #12 tablet Gabapentin [Neurontin] 200 mg PO TID #18 cap metroNIDAZOLE [Flagyl] 500 mg PO TID #18 tab Thiamine [Vitamin B-1] 100 mg PO DAILY@1200 tab ALPRAZolam [Xanax] 0.25 mg PO BID PRN 3 Days #6 tab PRN Reason: Anxiety Continue Metoprolol Tartrate [Lopressor] 100 mg PO BID Aspirin 325 mg PO DAILY rOPINIRole HCL [Requip] 0.25 mg PO TID traZODone HCL [Desyrel] 200 mg PO HS Cilostazol [Pletal] 100 mg PO BID Albuterol Nebulized [Ventolin Nebulized] 2.5 mg INHALATION RT-QID PRN PRN Reason: Shortness Of Breath HYDROcodone/APAP 10-325MG [[place] 10-325] 1 tab PO Q6HR PRN #18 tab PRN Reason: Pain Discontinued ALPRAZolam [Xanax] 1 mg PO BID PRN PRN Reason: Anxiety Gabapentin 800 mg PO QID Lisinopril [Zestril] 10 mg PO DAILY Discharge Medication List Aspirin 325 mg PO DAILY 04/22/14 [History] Cilostazol [Pletal] 100 mg PO BID 04/22/14 [History] Metoprolol Tartrate [Lopressor] 100 mg PO BID 04/22/14 [History] rOPINIRole HCL [Requip] 0.25 mg PO TID 04/22/14 [History] traZODone HCL [Desyrel] 200 mg PO HS 04/22/14 [History] Albuterol Nebulized [Ventolin Nebulized] 2.5 mg INHALATION RT-QID PRN 05/16/14 [ History] ALPRAZolam [Xanax] 0.25 mg PO BID PRN 3 Days #6 tab 12/27/17 [Rx] Ciprofloxacin HCl [Cipro] 250 mg PO Q12HR #12 tablet 12/27/17 [Rx] Gabapentin [Neurontin] 200 mg PO TID #18 cap 12/27/17 [Rx] HYDROcodone/APAP 10-325MG [[place] 10-325] 1 tab PO Q6HR PRN #18 tab 12/27/17 [Rx] Thiamine [Vitamin B-1] 100 mg PO DAILY@1200 tab 12/27/17 [Rx] metroNIDAZOLE [Flagyl] 500 mg PO TID #18 tab 12/27/17 [Rx] Follow up Appointment(s)/Referral(s): Phani Rosenthal MD [Primary Care Provider] - 1 Week Patient Instructions/Handouts: Colitis (ED) Activity/Diet/Wound Care/Special Instructions: No smoking, cessation information provided. Activity as tolerated, fall precautions. Rawls catheter for retention. Discharge Disposition: TRANSFER TO SNF/ECF
[2017-12-27 15:24] VITALS: BP 173/84; PULSE 62; RESP 18
[2017-12-27] MEDS ORDERED: LEVOFLOXACIN 250 MG TAB PO SCH (21:00)
--- NOTE | 2017-12-27 22:14 | PN ---
PROGRESS NOTE Patient is seen for followup for acute kidney injury. Renal function has improved significantly, with creatinine down to 2.0 now from initial 6.75 mg/dL. Patient will be going home today. On examination, blood pressure was 160/87, heart rate 77 per minute. He is afebrile. EXAMINATION OF THE HEART: S1, S2. EXAMINATION OF LUNGS: Bilateral breath sounds are heard. ABDOMEN: Soft, non-tender. 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 Labs show sodium 141, potassium 3.5, BUN 29, serum creatinine 2.06, hemoglobin 12.7 g/dL. ASSESSMENT: 1. Acute kidney injury, currently non-oliguric, with significant improvement in renal function. Patient is stable for discharge from nephrology standpoint. 2. Possible chronic kidney disease. However, previous creatinine was 0.74, but patient has proteinuria, which will need further evaluation. PLAN: Patient is stable for discharge from nephrology standpoint. He needs to follow up as outpatient. MMODL / IJN: [id number] /
[2017-12-28 14:11] LABS: HCV Quant Log 6.09 (<1.08)
== END 2017-12-27 16:55 | DRG 391 ==
LOC: EC 18:08 → 4MS4W 19:07
PROVIDERS: ADMIT Hospitalist; ATTEND Hospitalist
DX: A09 Infectious gastroenteritis and colitis, unspecified (principal); G93.41 Metabolic encephalopathy; E87.2 Acidosis; N17.9 Acute kidney failure, unspecified; E87.1 Hypo-osmolality and hyponatremia; R18.8 Other ascites; J44.9 Chronic obstructive pulmonary disease, unspecified; K70.9 Alcoholic liver disease, unspecified; N28.1 Cyst of kidney, acquired; K62.89 Other specified diseases of anus and rectum; E86.0 Dehydration; R33.9 Retention of urine, unspecified; T39.395A Adverse effect of other nonsteroidal anti-inflammatory drugs [NSAID], initial encounter; M51.36 Other intervertebral disc degeneration, lumbar region; E78.5 Hyperlipidemia, unspecified; I10 Essential (primary) hypertension; F41.9 Anxiety disorder, unspecified; H54.61 Unqualified visual loss, right eye, normal vision left eye; M19.91 Primary osteoarthritis, unspecified site; B19.20 Unspecified viral hepatitis C without hepatic coma; F10.21 Alcohol dependence, in remission; F17.210 Nicotine dependence, cigarettes, uncomplicated; Z71.6 Tobacco abuse counseling; Z79.82 Long term (current) use of aspirin; Z79.899 Other long term (current) drug therapy; Z95.828 Presence of other vascular implants and grafts; Z86.718 Personal history of other venous thrombosis and embolism; Z98.61 Coronary angioplasty status; Z89.612 Acquired absence of left leg above knee; Z89.611 Acquired absence of right leg above knee; Z85.828 Personal history of other malignant neoplasm of skin; Z87.440 Personal history of urinary (tract) infections; Z88.5 Allergy status to narcotic agent; Z88.8 Allergy status to other drugs, medicaments and biological substances; Z80.9 Family history of malignant neoplasm, unspecified
CPT/HCPCS: 70450; 71045; 76770; 80048; 80053; 80074; 81001; 82105; 83605; 83735; 85025; 85610; 87040; 87045; 87046; 87086; 87324; 87522; 87902; 99285